=== PATIENT | male | born 1935 | race Two or more races ===

== ENCOUNTER 2019-09-08 07:43 | Day surgery (SDC) | payer MEDICARE, OTHER ==
--- NOTE | 2019-09-07 15:13 | NUR ---
Preop instructions given to patient thru [facility] chute puller [employer] ID # [id number].
[~2019-09-08] VITALS: Ht 156 cm; Wt 71.7 kg
[2019-09-08] VITALS (9 sets, daily range): BP systolic 108–136; BP diastolic 52–82
[2019-09-08] MEDS ORDERED: Dexamethasone 4mg/ml vial ONE (08:04)
[2019-09-08] MEDS ORDERED: BSS 500ml btl ONE (08:04)
[2019-09-08] MEDS ORDERED: BSS 15ml BTL ONE (08:04)
[2019-09-08] MEDS ORDERED: Povidone-Iodine 5% opth solution ONE (08:04)
[2019-09-08] MEDS ORDERED: Lidocaine 1% MPF 10mg/ml 5ml ONE (08:04)
[2019-09-08] MEDS ORDERED: EPINEPHrine 1mg/1ml Amp ONE (08:04)
[2019-09-08] MEDS ORDERED: Sodium Hyaluronate 10 mg/ml 0.85ml ONE (08:04)
[2019-09-08] MEDS: Akten 3.5% 1ml Btl RIGHT EYE SCH ×3 (08:11→08:20)
[2019-09-08] MEDS: Tropicamide 1% Opth 15ml Soln RIGHT EYE SCH ×3 (08:11→08:20)
[2019-09-08] MEDS: Diclofenac Sod 0.1% Op Soln RIGHT EYE SCH ×3 (08:11→08:20)
[2019-09-08] MEDS: Vigamox Opth Soln 3ml RIGHT EYE SCH ×3 (08:11→08:20)
[2019-09-08] MEDS: Phenylephrine 10% Opth Soln 5ml RIGHT EYE SCH ×3 (08:11→08:20)
--- NOTE | 2019-09-08 08:18 | Pre-Procedure Note/Attestation ---
Pre-Procedure Note/Attestation Complete Prior to Procedure Planned Procedure: right Procedure Narrative: 1- Cataract extraction, right eye 2- Insertion Malyugin ring for the floppy iris syndrome treatment. 3- Complex Cataract removal, right eye Indications for Procedure Pre-Operative Diagnosis: 1- Cataract, right eye 2- Floppy Iris syndrome, right eye. 3- Complex cataract, right eye Attestation I attest that I discussed the nature of the procedure; its benefits; risks and complications; and alternatives (and the risks and benefits of such alternatives ), prior to the procedure, with the patient (or the patient's legal textile machinery sales representative). I attest that, if there was a reasonable possibility of needing a blood transfusion, the patient (or the patient's legal textile machinery sales representative) was given the [place] Department of Health Services standardized written summary, pursuant to the [place] Blood Safety Act ([place] Health and Safety Code # 1645, as amended). I attest that I re-evaluated the patient just prior to the surgery and that there has been no change in the patient's H&P, except as documented below: Joseph Ivory MD Sep 08, 2019 08:18
[2019-09-08] MEDS ORDERED: ANDROGEL2.5 G1 TD (08:29)
[2019-09-08] MEDS ORDERED: NS Irrig 1000ml ONE (08:30)
[2019-09-08] MEDS ORDERED: Sterile Water Irrig 1000ml IRRIG ONE (08:30)
[2019-09-08] MEDS ORDERED: CLOPIDOGREL75 MG ORAL (08:30)
[2019-09-08] MEDS ORDERED: LR 1000ml ONE (08:30)
[2019-09-08] MEDS ORDERED: Propofol 200mg/20ml IV ONE (08:30)
[2019-09-08] MEDS ORDERED: fentaNYL 100 mcg/2 mL IV ONE (08:30)
[2019-09-08] MEDS ORDERED: DICLOFEN 3%-HYA30 GM TP (08:33)
[2019-09-08] MEDS ORDERED: DONEPEZIL HCL10 M2 ORAL (08:34)
[2019-09-08] MEDS ORDERED: LEXAPRO10 MG ORAL ×2 (08:35→08:40)
[2019-09-08] MEDS ORDERED: ZETIA10 MG ORAL (08:37)
[2019-09-08] MEDS ORDERED: FAMOTIDINE20 MG ORAL (08:38)
[2019-09-08] MEDS ORDERED: FOLIC ACID1 MG ORAL (08:38)
[2019-09-08] MEDS ORDERED: JALYN 0.5-0.41 EACH PO (08:39)
[2019-09-08] MEDS ORDERED: GLUCOSAMINE1000 M1 PO (08:39)
[2019-09-08] MEDS ORDERED: LORATADINE10 M1 PO (08:41)
[2019-09-08] MEDS ORDERED: lovaza PO (08:42)
[2019-09-08] MEDS ORDERED: MEGESTROL ACETA40 MG PO (08:43)
[2019-09-08] MEDS ORDERED: MECLIZINE HCL12.5 MG ORAL (08:43)
[2019-09-08] MEDS ORDERED: MONTELUKAST SOD10 MG ORAL (08:44)
[2019-09-08] MEDS ORDERED: LR 1000ml 1,000 ML IVLG SCH (08:45)
[2019-09-08] MEDS ORDERED: fentaNYL 100 mcg/2 mL IV PRN (08:45)
[2019-09-08] MEDS ORDERED: PRAVASTATIN SOD20 M1 ORAL (08:45)
[2019-09-08] MEDS ORDERED: ZOLPIDEM TARTRAT5 MG ORAL (08:45)
--- NOTE | 2019-09-08 08:45 | Anethesia Preoperative Eval ---
Anesthesia Pre-op PMH/ROS General Date of Evaluation: Sep 08, 2019 Time of Evaluation: 08:17 Anesthesiologist: Freddie ASA Score: ASA 3 Mallampati Score Class I : Soft palate, uvula, fauces, pillars visible Class II: Soft palate, uvula, fauces visible Class III: Soft palate, base of uvula visible Class IV: Only hard plate visible Mallampati Classification: Class II Surgeon: Cachorro Diagnosis: R eye cataract Surgical Procedure: Cataract extraction Anesthesia History: none Family History: no anesthesia problems Allergies: Coded Allergies: PENICILLINS (Verified Allergy, Intermediate, redness; rash, 09/08/19) Medications: see eMAR Patient NPO?: Yes Past Medical History Cardiovascular: Reports: HTN - borderline, CAD - s/p CABG, [place]; Denies: valve dz, arrhythmia, other Pulmonary: Denies: asthma, COPD, DEVYN, other Gastrointestinal/Genitourinary: Reports: GERD; Denies: CRI, ESRD, other Neurologic/Psychiatric: Reports: depression/anxiety; Denies: dementia, CVA, TIA, other Endocrine: Denies: DM, hypothyroidism, steroids, other HEENT: Reports: cataract (L), cataract (R); Denies: glaucoma, [place] (L), [place] (R), other Hematology/Immune: Reports: anemia - mild; Denies: DVT, bleeding disorder, other Musculoskeletal/Integumentary: Reports: OA; Denies: RA, DJD, DDD, edema, other PMH Narrative: as above PSxH Narrative: CABG, Bilateral hernia repair, prostate Sx Anesthesia Pre-op Phys. Exam Physician Exam Last Vital Signs Date Time Temp Pulse Resp B/P (MAP) Pulse Ox O2 Delivery O2 Flow Rate FiO2 09/08/19 08:24 Room Air 09/08/19 08:11 97.3 61 18 136/52 97 Constitutional: NAD Neurologic: CN 2-12 intact Cardiovascular: RRR, no M/R/G Respiratory: CTA Gastrointestinal: S/NT/ND Airway Exam Mallampati Score: Class II MO: limited Neck: stiff ROM: limited Teeth: missing Dentures: no upper, no lower Anesthesia Pre-op A/P Labs see chart Studies Pre-op Studies: EKG - SR Risk Assessment & Plan Assessment: ASA 3 Plan: MAC Status Change Before Surgery: No Pre-Antibiotics Drug: none Vakulenko,Greg MD Sep 08, 2019 08:45
[2019-09-08] MEDS ORDERED: VITAMIN C500 M1 ORAL (08:46)
[2019-09-08] MEDS ORDERED: Vit B12 PO (08:47)
[2019-09-08] MEDS ORDERED: VIT E PO (08:47)
--- NOTE | 2019-09-08 09:26 | Discharge Summary ---
Discharge Summary Discharge Summary Discharge Summary DATE OF ADMISSION: DATE OF DISCHARGE: 09/08/2019 REASON FOR HOSPITALIZATION: cataract right eye SURGERY PERFORMED: 1- Complex catarct removal CONDITION IN THE HOSPITAL:The patient tolerated the surgery without complications. DISCHARGE CONDITION: The patient was stable at discharge. DISCHARGE MEDICATIONS: 1. Vigamox eye drops one drop q.i.d, 2. Prednisolone one drop q.i.d, 3. Prolensa drop QD, OD POSTOPERATIVE ORDERS: The patient has to rest at home. No bending, No lifting, No watching Television tonight. POSTOPERATIVE FOLLOW UP: The patient will be followed in my office tomorrow morning at 7 o'clock. Joseph Ivory MD Sep 08, 2019 09:26
--- NOTE | 2019-09-08 09:27 | Immediate Post-Op Evaluation ---
Immediate Post-Op Evalulation Immediate Post-Op Evalulation Procedure: R eye cataract extraction with IOL Date of Evaluation: Sep 08, 2019 Time of Evaluation: 09:26 IV Fluids: 300 Blood Products: none Estimated Blood Loss: none Urinary Output: none Blood Pressure Systolic: 126 Blood Pressure Diastolic: 78 Pulse Rate: 64 Respiratory Rate: 18 O2 Sat by Pulse Oximetry: 98 Temperature (Fahrenheit): 97.7 Pain Score (1-10): 1 Nausea: No Vomiting: No Complications none Patient Status: awake, patent, none Hydration Status: adequate Greg Frazier MD Sep 08, 2019 09:27
--- NOTE | 2019-09-08 09:43 | Brief Operative Note ---
Immediate Post Operative Note Operative Note Chief Complaint: Blurry right eye, dificulty driving and reading Pre-op Diagnosis: 1- Cataract, right eye 2- Floppy Iris syndrome, right eye. 3- Complex cataract, right eye Procedure: 1- cataract extraction with phaco and PC IOL implantation, right eye 2- Malyugin ring insertion, right eye 3- Complex cataract removed, right eye. Post-op Diagnosis: same as pre-op Surgeon: Joseph Ivory MD Content Creation Manager: None Additional Surgeons: None Anesthesiologist: Dr. Frazier Anesthesia: MAC Specimen: none Complications: none Condition: stable Fluids: 300ml Estimated Blood Loss: none Drains: none Implant(s) used?: Yes - Monofocal PC IOL implanted in the right eye without complication Joseph Ivory MD Sep 08, 2019 09:43
--- NOTE | 2019-09-08 10:17 | 48 Hour Post Anesthesia Eval ---
Post Anesthesia Evaluation Procedure: R eye cataract extraction with IOL Date of Evaluation: Sep 08, 2019 Time of Evaluation: 10:16 Blood Pressure Systolic: 122 0: 68 Pulse Rate: 72 Respiratory Rate: 18 Temperature (Fahrenheit): 97.6 O2 Sat by Pulse Oximetry: 98 Airway: patent Nausea: No Vomiting: No Pain Intensity: 1 Hydration Status: adequate Cardiopulmonary Status: stable Mental Status/LOC: patient returned to baseline Follow-up Care/Observations: n/a Post-Anesthesia Complications: none Follow-up care needed: ready to discharge Greg Frazier MD Sep 08, 2019 10:17
--- NOTE | 2019-09-09 16:00 | Operative Note - Dictated ---
DATE OF OPERATION: 09/09/2019 FACILITY: [facility]. SURGEON: Joseph Ivory M.D. DOCUMENTATION IMPROVEMENT SPECIALIST: None. ANESTHESIOLOGIST: Greg Frazier M.D. ANESTHESIA: Monitored anesthesia care (MAC). PREOPERATIVE DIAGNOSES: 1. Cataract, right eye. 2. Floppy iris syndrome. 3. Complex cataract, right eye. POSTOPERATIVE DIAGNOSES: 1. Cataract, right eye. 2. Floppy iris syndrome. 3. Complex cataract, right eye. SURGERY PERFORMED: 1. Cataract extraction with phacoemulsification and posterior chamber intraocular lens implantation, right eye. 2. Malyugin ring was inserted for treatment of floppy iris syndrome. 3. Complex cataract was removed, right eye. INDICATION FOR SURGERY: The patient is a 83-year-old gentleman with history of arthritis, benign prostatic hypertrophy, and hypertension. The patient never smoked, never drank. He is not employed. He is , lives with family. He is taking medications including Rach 0.5-0.4 mg, prednisone 20 mg, azelastine 137 mcg, Vascepa 1 g, donepezil 10 mg, ezetimibe 10 mg. The patient is allergic to penicillin. He is complaining of blurred vision in the right eye. On examination of the right eye, the cornea is clear. Anterior chamber is clean and quiet and is very shallow. Pupillary reflexes normal. There is no RAPD. There is 3+ nuclear sclerosis and 2+ cortical cataract. Funduscopy shows normal macula, normal optic disc, and periphery retina is flat. The patient has very, very, very eye and surgery is getting difficult. To improve his vision in the right eye, the cataract has to be removed, floppy iris syndrome has to be managed, and posterior chamber intraocular lens has to be implanted. INFORMED CONSENT: The nature of the surgery, risks, benefits, alternatives, and potential complications were all explained in detail to the patient. The potential complications including but not limited to bleeding, infection, posterior capsular rupture, lens subluxation, flat anterior chamber, iris prolapse, uveitis, corneal edema, macular edema, endophthalmitis, retinal detachment, loss of vision, and loss of the eye and even were all explained in detail to the patient. The patient voiced understanding and accepted all the complications. The alternatives including accommodating lens, multifocal lens, toric lens, were all explained in detail to the patient in his language, Farsi. The patient voiced understanding. The patient elected to have only conventional cataract surgery with insertion of monofocal lens. Then, he signed the consent form, which is in the chart. DESCRIPTION OF SURGERY AND FINDINGS: Following that, the patient was taken to the operating room in stable condition. Lidocaine gel, Akten 3.5% were applied to the conjunctiva of the right eye. IV sedation was given by the anesthesiologist, Dr. Frazier. After adequate anesthesia and sedation had been achieved, the right eye was prepped and draped in sterile fashion for intraocular surgery. Following that, a speculum was placed in the right eye and right eye was deep sunken eye and surgery was difficult. Following that, using a Super Sharp knife, a clear corneal side port was created. A 1% lidocaine without preservative (MPF) was injected into the anterior chamber. The viscoelastic agent, Healon, was injected into the anterior chamber. Following that, using a 2.8 mm keratome, a clear corneal temporal keratotomy was performed. Following that, 6.2 mm Malyugin ring was inserted into the anterior chamber. The coils of the Malyugin ring were engaged with the sphincter of the pupil to create a grady-shaped space for safe phacoemulsification. Following that, VisionBlue was injected under the viscoelastic agent to stain the anterior capsule of the crystalline lens. Following that, clear fresh viscoelastic agent Healon was injected into the anterior chamber again. Under the viscoelastic agent, an anterior capsulotomy was performed in the fashion of capsulorrhexis beautifully. Following that, the whole viscoelastic agent was removed from the anterior chamber. Following that, using balanced salt solution, hydrodissection and hydrodelineation was performed and the nucleus was freed. Following that, clear fresh viscoelastic agent, Healon was injected into the anterior chamber to protect the endothelium of the cornea. Following that, using the phacoemulsification machine in the fashion of horizontal chop, the nucleus was removed in toto. Following that, cortical material was removed from the capsular bag and the capsular bag was polished. Following that, the capsular bag was filled with viscoelastic agent, Healon. Following that, +23.5 diopters PCB00 foldable IOL with serial number [id number] was injected into the capsular bag. Using the Sinskey hook, the lens was manipulated and put in the proper position. Following that, whole viscoelastic agent was removed from the anterior and posterior part of the lens and anterior chamber was filled with balanced salt solution. The wound was hydrated with balanced salt solution. Vigamox eyedrops were applied to the conjunctiva of the right eye. The patient tolerated the surgery without complications. At the end of the surgery, the eye was patched with a clear sterile fenestrated shield. Following that, the patient was transferred to the recovery room. In the recovery room, 125 mg Diamox was given by mouth stat. Postoperative orders and directions were given to the patient. The patient will be discharged home upon stabilization. The patient will be followed in my office tomorrow morning. Joseph Ivory M.D. DR: Binta JOB#: [id number] CC:
== END 2019-09-08 10:40 | disposition home or self-care (01) ==
LOC: SUR 07:43
DX: H25.11 Age-related nuclear cataract, right eye (principal); H21.81 Floppy iris syndrome; H25.011 Cortical age-related cataract, right eye; I11.9 Hypertensive heart disease without heart failure; M19.90 Unspecified osteoarthritis, unspecified site; E11.9 Type 2 diabetes mellitus without complications; I25.2 Old myocardial infarction; Z88.0 Allergy status to penicillin; D64.9 Anemia, unspecified
CPT/HCPCS: 66982; 82962; J0171; J1100; J2704; J3010; J7120; V2632; 94003; 94150

== ENCOUNTER 2019-09-22 06:35 | Day surgery (SDC) | payer MEDICARE, OTHER ==
[~2019-09-22] VITALS: Ht 162.6 cm; Wt 71.7 kg
[2019-09-22] VITALS (9 sets, daily range): BP systolic 110–142; BP diastolic 56–77
[~2019-09-22 06:35] MED LIST: ANDROGEL2.5 G1 TD; CLOPIDOGREL75 MG ORAL; DICLOFEN 3%-HYA30 GM TP; DONEPEZIL HCL10 M2 ORAL; FAMOTIDINE20 MG ORAL; FOLIC ACID1 MG ORAL; GLUCOSAMINE1000 M1 PO; JALYN 0.5-0.41 EACH PO; LEXAPRO10 MG ORAL; LORATADINE10 M1 PO; MECLIZINE HCL12.5 MG ORAL; MEGESTROL ACETA40 MG PO; MONTELUKAST SOD10 MG ORAL; PRAVASTATIN SOD20 M1 ORAL; VIT E PO; VITAMIN C500 M1 ORAL; Vit B12 PO; ZETIA10 MG ORAL; ZOLPIDEM TARTRAT5 MG ORAL; lovaza PO
[2019-09-22] MEDS: Tropicamide 1% Opth 15ml Soln LEFT EYE SCH ×3 (06:58→07:11)
[2019-09-22] MEDS: Vigamox Opth Soln 3ml LEFT EYE SCH ×3 (06:58→07:11)
[2019-09-22] MEDS: Diclofenac Sod 0.1% Op Soln LEFT EYE SCH ×3 (06:58→07:11)
[2019-09-22] MEDS: Phenylephrine 10% Opth Soln 5ml LEFT EYE SCH ×3 (06:58→07:11)
[2019-09-22] MEDS: Akten 3.5% 1ml Btl LEFT EYE SCH ×3 (06:58→07:11)
[2019-09-22] MEDS ORDERED: Lidocaine 4% Amp 5ml ONE (07:05)
[2019-09-22] MEDS ORDERED: Carbachol 0.01% Op Soln 1.5ml vial ONE (07:05)
[2019-09-22] MEDS ORDERED: Dexamethasone 4mg/ml vial ONE (07:05)
[2019-09-22] MEDS ORDERED: EPINEPHrine 1mg/1ml Amp ONE (07:05)
[2019-09-22] MEDS ORDERED: Lidocaine 1% MPF 10mg/ml 5ml ONE (07:05)
[2019-09-22] MEDS ORDERED: BSS 500ml btl ONE ×2 (07:06→08:51)
[2019-09-22] MEDS ORDERED: BSS 15ml BTL ONE (07:06)
[2019-09-22] MEDS ORDERED: Povidone-Iodine 5% opth solution ONE (07:06)
[2019-09-22] MEDS ORDERED: Tetracaine 0.5% Opth 4ml Soln ONE (07:06)
[2019-09-22] MEDS ORDERED: fentaNYL 100 mcg/2 mL IV ONE (07:06)
[2019-09-22] MEDS ORDERED: Sodium Hyaluronate 10 mg/ml 0.85ml ONE ×2 (07:07→08:34)
[2019-09-22] MEDS ORDERED: fentaNYL 100 mcg/2 mL IV PRN (07:15)
[2019-09-22] MEDS: LR 1000ml 1,000 ML IVLG SCH ×2 (07:15→08:19)
--- NOTE | 2019-09-22 07:15 | Anethesia Preoperative Eval ---
Anesthesia Pre-op PMH/ROS General Date of Evaluation: Sep 22, 2019 Time of Evaluation: 07:11 Anesthesiologist: Freddie ASA Score: ASA 3 Mallampati Score Class I : Soft palate, uvula, fauces, pillars visible Class II: Soft palate, uvula, fauces visible Class III: Soft palate, base of uvula visible Class IV: Only hard plate visible Mallampati Classification: Class II Surgeon: Cachorro Diagnosis: L eye cataract Surgical Procedure: Cataract extraction Anesthesia History: none Family History: no anesthesia problems Allergies: Coded Allergies: PENICILLINS (Verified Allergy, Intermediate, redness; rash, 09/08/19) Medications: see eMAR Patient NPO?: Yes Past Medical History Cardiovascular: Reports: HTN, CAD - s/p CABG, [place] - remout past; Denies: valve dz, arrhythmia, other Pulmonary: Denies: asthma, COPD, DEVYN, other Gastrointestinal/Genitourinary: Reports: GERD; Denies: CRI, ESRD, other Neurologic/Psychiatric: Reports: depression/anxiety; Denies: dementia, CVA, TIA, other Endocrine: Reports: hypothyroidism HEENT: Reports: cataract (L), cataract (R); Denies: glaucoma, [place] (L), [place] (R), other Hematology/Immune: Reports: bleeding disorder - on plavix; Denies: anemia, DVT, other Musculoskeletal/Integumentary: Reports: OA; Denies: RA, DJD, DDD, edema, other PMH Narrative: as above PSxH Narrative: see chart Anesthesia Pre-op Phys. Exam Physician Exam Last Vital Signs Date Time Temp Pulse Resp B/P (MAP) Pulse Ox O2 Delivery O2 Flow Rate FiO2 09/22/19 07:00 97.0 58 20 131/77 100 Room Air Constitutional: NAD Neurologic: CN 2-12 intact Cardiovascular: RRR, no M/R/G Respiratory: CTA Gastrointestinal: S/NT/ND Airway Exam Mallampati Score: Class II MO: limited Neck: stiff ROM: limited Teeth: missing Dentures: no upper, no lower Anesthesia Pre-op A/P Labs see chart Studies Pre-op Studies: EKG - SR Risk Assessment & Plan Assessment: ASA 3 Plan: MAC Status Change Before Surgery: Greg Nelson MD Sep 22, 2019 07:15
--- NOTE | 2019-09-22 07:29 | Pre-Procedure Note/Attestation ---
Pre-Procedure Note/Attestation Complete Prior to Procedure Planned Procedure: left Procedure Narrative: 1- cataract extraction left eye . with phaco 2- Malyugin ring insertion for IFIS treatment Indications for Procedure Pre-Operative Diagnosis: 1- Cataract, left eye 2- Complex cataract, left eye Attestation I attest that I discussed the nature of the procedure; its benefits; risks and complications; and alternatives (and the risks and benefits of such alternatives ), prior to the procedure, with the patient (or the patient's legal event representative). I attest that, if there was a reasonable possibility of needing a blood transfusion, the patient (or the patient's legal event representative) was given the [place] Department of Health Services standardized written summary, pursuant to the [place] Blood Safety Act ([place] Health and Safety Code # 1645, as amended). I attest that I re-evaluated the patient just prior to the surgery and that there has been no change in the patient's H&P, except as documented below: Joseph Ivory MD Sep 22, 2019 07:29
[2019-09-22] MEDS ORDERED: NS Irrig 1000ml ONE (07:30)
[2019-09-22] MEDS ORDERED: Sterile Water Irrig 1000ml IRRIG ONE (07:30)
[2019-09-22] MEDS ORDERED: LR 1000ml ONE (07:30)
[2019-09-22] MEDS ORDERED: Propofol 200mg/20ml IV ONE (07:30)
--- NOTE | 2019-09-22 08:54 | Immediate Post-Op Evaluation ---
Immediate Post-Op Evalulation Immediate Post-Op Evalulation Procedure: L eye cataract extraction with IOL Date of Evaluation: Sep 22, 2019 Time of Evaluation: 08:53 IV Fluids: 400 Blood Products: none Estimated Blood Loss: none Urinary Output: none Blood Pressure Systolic: 142 Blood Pressure Diastolic: 64 Pulse Rate: 68 Respiratory Rate: 20 O2 Sat by Pulse Oximetry: 99 Temperature (Fahrenheit): 97.8 Pain Score (1-10): 1 Nausea: No Vomiting: No Complications none Patient Status: awake, patent, none Hydration Status: adequate Greg Frazier MD Sep 22, 2019 08:54
--- NOTE | 2019-09-22 09:44 | Discharge Summary ---
Discharge Summary Discharge Summary Discharge Summary DATE OF ADMISSION: 09/22/2019 DATE OF DISCHARGE: 09/22/2019 REASON FOR HOSPITALIZATION: 1- Cataract, left eye 2- Astigmatism 3- complex cataract SURGERY PERFORMED: 1- Cataract extraction with phaco 2- LRI, OS 3- Malyugin ring insertion for the floppy iris treatment CONDITION IN THE HOSPITAL:The patient tolerated the surgery without complications. DISCHARGE CONDITION: The patient was stable at discharge. DISCHARGE MEDICATIONS: 1. Vigamox eye drops one drop q.i.d, OS 2. Prednisolone one drop q.i.d, OS 3. prolensa QD OS POSTOPERATIVE ORDERS: The patient has to rest at home. No bending, No lifting, No watching Television tonight. POSTOPERATIVE FOLLOW UP: The patient will be followed in my office tomorrow morning at 7 o'clock. Joseph Ivory MD Sep 22, 2019 09:44
--- NOTE | 2019-09-22 09:48 | Brief Operative Note ---
Immediate Post Operative Note Operative Note Chief Complaint: Blurry vision, difficulty driving lleft eye Pre-op Diagnosis: 1- Cataract, left eye 2- Complex cataract, left eye Procedure: 1- Cataract extraction, left eye 2- LRI left eye 3- Malyugin ring insertion for the complex cataract, left eye Post-op Diagnosis: same as pre-op Surgeon: Gato Ivory [facility] [employer] Agent: None Additional Surgeons: None Anesthesiologist: Dr. Frazier Anesthesia: MAC Specimen: none Complications: none Condition: stable Fluids: 300ml Estimated Blood Loss: none Drains: none Implant(s) used?: Yes - Monofocal IOL inserted in the left eye without complication Joseph Ivory MD Sep 22, 2019 09:48
--- NOTE | 2019-09-22 23:30 | Operative Note - Dictated ---
DATE OF OPERATION: 09/22/2019 IDENTIFICATION: The patient is an 83-year-old gentleman. FACILITY: [facility]. SURGEON: Joseph Ivory M.D. ENTRY LEVEL TRUCK DRIVER: None. ANESTHESIOLOGIST: Greg Frazier M.D. ANESTHESIA: Monitored anesthesia care (MAC). PREOPERATIVE DIAGNOSES: 1. Cataract, left eye. 2. Floppy iris syndrome, left eye. 3. Complex cataract, left eye. 4. Astigmatism, left eye. POSTOPERATIVE DIAGNOSES: 1. Cataract, left eye. 2. Floppy iris syndrome, left eye. 3. Complex cataract, left eye. 4. Astigmatism, left eye. SURGERY PERFORMED: 1. Cataract extraction with phacoemulsification and posterior chamber intraocular lens implantation, left eye. 2. Malyugin ring was inserted for treatment of floppy iris syndrome. 3. Limbal relaxing incision, left eye. 4. Complex cataract was removed. INDICATION FOR SURGERY: The patient is an 83-year-old gentleman with history of arthritis, benign prostatic hypertrophy, and hypertension. The patient is never a smoker and never a drinker. He is not employed. He is and lives with family. He is taking medications including Rach 0.5/0.4 mg, prednisone 20 mg, azelastine 137 mcg, Vascepa 1 g, donepezil 10 mg, and ezetimibe 10 mg. The patient is allergic to penicillin. He has had cataract surgery in the right eye two weeks ago and he is happy with the result. Now, he is complaining of blurry vision in the left eye. On examination of the left eye, the eye is difficulty. The cornea is clear. Anterior chamber is clean and quiet, but very shallow. Anterior chamber is shallow. Pupillary reflexes normal. There is no RAPD. The lens dilates because of floppy iris syndrome. There is 4+ nuclear sclerosis and 2+ cortical cataract in the left eye. Funduscopy shows normal optic disc and normal macula. Peripheral retina is flat. To improve his vision in the left eye, the cataract has to be removed, posterior chamber intraocular lens has to be implanted, and astigmatism has to be addressed as well. INFORMED CONSENT: The nature of the surgery, risks, benefits, alternatives, and potential complications were all explained in detail to the patient in his language, Farsi. The potential complications including but not limited to bleeding, infection, posterior capsular rupture, lens subluxation, flat anterior chamber, iris prolapse, uveitis, corneal edema, macular edema, endophthalmitis, retinal detachment, loss of vision, loss of the eye, and even were all explained in detail to the patient. The patient voiced understanding and accepted all the complications. The alternatives including accommodating lens, multifocal lens were all explained in detail to the patient in his language, Farsi. The patient voiced understanding and accepted all the complications. The patient elected to have conventional cataract surgery with insertion of monofocal lens and limbal relaxing incision for treatment of astigmatism. Then, he signed the consent form, which is in the chart. DESCRIPTION OF SURGERY AND FINDINGS: Following that, the patient was taken to the operating room in stable condition. Lidocaine gel, Akten 3.5% were applied to the conjunctiva of the left eye. IV sedation was given by the anesthesiologist, Dr. Frazier. After adequate anesthesia and sedation had been achieved, the left eye was prepped and draped in sterile fashion for intraocular surgery. Following that, a speculum was placed in the left eye. Before the patient was taken to the operation room, the cornea was marked at 180 and 90 degree meridian. In the operating room, using a corneal marker and marking pen, the steep meridian of the cornea was marked. Following that, using a grady knife with a 550 micron blade, two parallel incisions were placed on the steep meridian of the cornea to treat the astigmatism. Following that, using a Super Sharp knife, a clear corneal side port was created. A 1% lidocaine without preservative (MPF) was injected into the anterior chamber. Viscoelastic agent, Healon, was injected into the anterior chamber. Following that, using a 2.8 mm keratome, a clear corneal temporal keratotomy was performed. Viscoelastic agent, Healon, was injected into the anterior chamber again. Following that, a 6.2 mm Malyugin ring was inserted into the anterior chamber. Following that, the coils of the Malyugin ring were engaged with the sphincter of the pupil to create a grady-shaped space for a safe phacoemulsification. Following that, VisionBlue was injected under the viscoelastic agent to stain the anterior capsule of the crystalline lens. Following that, clear fresh viscoelastic agent was injected into the anterior chamber. Under the viscoelastic agent, anterior capsulotomy was performed in the fashion of capsulorrhexis beautifully. Following that, the whole viscoelastic agent was removed from the anterior chamber. Following that, using balanced salt solution, hydrodissection and hydrodelineation was performed and the nucleus was freed. Following that, clear fresh viscoelastic agent was injected into the anterior chamber to protect the endothelium of the cornea. Following that, using the phacoemulsification machine in the fashion of horizontal chop, the nucleus was removed in toto. Following that, cortical material was removed from the capsular bag using irrigation and aspiration unit. Following that, the capsular bag was polished. Following that, the capsular bag was filled with viscoelastic agent, Healon. Following that, +23.5 diopters PCB00 foldable IOL with serial #[id number] was injected into the capsular bag. Using the Sinskey hook, the lens was manipulated and put in the proper position. Following that, whole viscoelastic agent was removed from the anterior and posterior part of the lens and the anterior chamber was filled with balanced salt solution. The wound was hydrated with balanced salt solution. The wound was checked for leakage and there was no leakage. The patient tolerated the surgery without complications. At the end of the surgery, the eye was patched with a clear sterile fenestrated shield. Following that, the patient was transferred to the recovery room. In the recovery room, 125 mg Diamox was given by mouth stat. Postoperative orders and directions were given to the patient. The patient will be discharged home upon stabilization. The patient will be followed in my office tomorrow morning. Joseph Ivory M.D. DR: Binta JOB#: [id number] CC:
== END 2019-09-22 10:10 | disposition home or self-care (01) ==
LOC: SUR 06:35
DX: H25.12 Age-related nuclear cataract, left eye (principal); H21.81 Floppy iris syndrome; H25.012 Cortical age-related cataract, left eye; H52.202 Unspecified astigmatism, left eye; Z88.0 Allergy status to penicillin; I11.9 Hypertensive heart disease without heart failure; Z95.1 Presence of aortocoronary bypass graft; I25.2 Old myocardial infarction; K21.9 Gastro-esophageal reflux disease without esophagitis; F41.9 Anxiety disorder, unspecified; F32.9 Major depressive disorder, single episode, unspecified; Z79.02 Long term (current) use of antithrombotics/antiplatelets; M19.90 Unspecified osteoarthritis, unspecified site; E03.9 Hypothyroidism, unspecified
CPT/HCPCS: 66982; 66999; J0171; J1100; J2704; J3010; J7120; V2632; 94003; 94150